=== PATIENT | female | born 1955 | race Caucasian/White ===

== ENCOUNTER 2020-01-08 12:28 | Inpatient (IN) | payer BC, MEDICARE ==
[~2020-01-08] VITALS: Ht 165.1 cm; Wt 51.9 kg
--- NOTE | 2020-01-08 13:51 | NUR ---
DR QUIGLEY BS FOR EXAM. PT'S SPOUSE PROVIDING INFORMATION. RECENTLY RETURNED FROM 5 MONTH HOSPITAL STAY IN [place]. COUPLE WAS VACATIONING IN [place] WHEN DX'D W/ LARGE BRAIN TUMOR. RT SIDED DEFECIT - NO MOVEMENT RT ARM, LIMITED MOVEMENT IN LEG - CAN STAND BUT NOT WALK. MENTAL STATUS - AWARE BUT DIFFICULTY IN SPEAKING, CAN'T FINISH SENTENCES. LT TEMPORAL SURGICAL SITE W/ CADAVER SKIN - SOME SUTURES RELEASED PRIOR TO FLIGHT HOME. APPT PENDING W/ PCP THIS COMING FRIDAY. TODAY: SEVERE NULL. NO PAIN MEDS TAKEN TODAY. PT SLEEPY; ANSWERS QUESTIONS APPROPRIATELY. DENIES PAIN CURRENTLY.
--- NOTE | 2020-01-08 14:09 | NUR ---
PT RETURNED HOME FRIDAY; CHOSE TO STOP MEDS ON FRIDAY EXCEPT FOR TOPICAL OINTMENT (FROM [facility]) FOR SURGICAL SITE
[2020-01-08] MEDS ORDERED: [UNRECOGNIZED DRUG - OTHER] TP (14:13)
[2020-01-08 14:32] LABS: BASOPHILS # (AUTO) 0.04 x10^3/uL (0-0.1); BASOPHILS % (AUTO) 0 % (0-1); EOSINOPHILS # (AUTO) 0.04 x10^3/uL (0-0.4); EOSINOPHILS % (AUTO) 0 % (1-7); LYMPHOCYTES # (AUTO) 0.51 x10^3/uL (1-3.4); LYMPHOCYTES % (AUTO) 4 % (22-44); MD NO; MEAN CORPUSCULAR HEMOGLOBIN 30.5 pg (27.0-34.8); MEAN CORPUSCULAR HGB CONC 33.6 g/dL (32.4-35.8); MEAN CORPUSCULAR VOLUME 90.8 fL (80-100); MEAN PLATELET VOLUME 7.2 fL (7.4-10.4); MONOCYTES # (AUTO) 0.63 x10^3/uL (0.2-0.8); MONOCYTES % (AUTO) 5 % (2-9); NEUTROPHILS # (AUTO) 11.76 x10^3/uL (1.8-6.8); NEUTROPHILS % (AUTO) 91 % (42-75); PLATELET COUNT 275 x10^3/uL (130-400); RED BLOOD COUNT 4.81 x10^6/uL (3.82-5.3); RED CELL DISTRIBUTION WIDTH 17.6 % (9.6-15.2)
[2020-01-08 14:43] LABS: ALBUMIN 3.4 g/dL (3.4-5.0); ANION GAP 8 mmol/L (5-15); CHLORIDE 101 mmol/L (98-107); CREATININE 0.64 mg/dL (0.55-1.02)
--- NOTE | 2020-01-08 14:50 | NUR ---
TO MRI PER LELA
[2020-01-08 14:57] LABS: INTERNATIONAL NORMALIZED RATIO 1.02 (0.93-1.1); PROTHROMBIN TIME 10.8 Seconds (9.6-11.5)
[2020-01-08] MEDS ORDERED: GADOTERATE 7.5 MMOL/15 ML SYR ONE (15:35)
--- NOTE | 2020-01-08 16:11 | NUR ---
LATE ENTRY: PER PERSONNEL WORKER NOTE, EMS GAVE PT FENTANYL 100 MCG AND ZOFRAN 4 MG.
--- NOTE | 2020-01-08 17:00 | NUR ---
PT ENDORSED TO BREAK RN.
--- NOTE | 2020-01-08 17:15 | NUR ---
TASK RN: PT RESTING ON GURNEY. ERP DR. QUIGLEY AT BEDSIDE FOR RE-EVAL AND SPEAKING W/ FAMILY AT THIS TIME.
--- NOTE | 2020-01-08 17:20 | NUR ---
TASK RN: SPOKE W/ ERP DR. QUIGLEY WHO STATES TO NOT TURN HER ON HER LEFT SIDE AT THIS TIME.
--- NOTE | 2020-01-08 17:25 | NUR ---
TASK RN: HR NOTED TO INCREASE FROM 70-[address] QUIGLEY NOTIFIED.
--- NOTE | 2020-01-08 17:32 | NUR ---
TASK RN: REPORT GIVEN TO RECEIVING RN ON ONC. PT RESTING ON GURNEY. NADN. [place].
--- NOTE | 2020-01-08 17:41 | NUR ---
PT REPORT FROM DAVID QUESADA RN. AWAITING TRANSFER TO ROOM.
--- NOTE | 2020-01-08 17:50 | NUR ---
DR QUIGLEY AT BS.
--- NOTE | 2020-01-08 17:59 | NUR ---
AYLIN 1 GRAM ORDER CONFIRMED W/ DR QUIGLEY; TO BE GIVEN. LAB CURRENTLY BS FOR BLD CX DRAW.
[2020-01-08] MEDS ORDERED: ONDANSETRON 2MG/ML, 2ML IVPush ONE (18:00)
[2020-01-08] MEDS ORDERED: PHARMACOKINETIC CONSULTATION MC ONE ×2 (18:00→19:30)
[2020-01-08] MEDS ORDERED: VANCOMYCIN PER PHARMACY MC ONE (18:00)
[2020-01-08] MEDS ORDERED: VANCOMYCIN 1,800 MG in SODIUM CHLORIDE 0.9% 250 ML IV ONE ×2 (18:00→19:30)
[2020-01-08] MEDS ORDERED: CEFTRIAXONE PMX 1GM/50ML 50 ML IVPB ONE (18:00)
[2020-01-08] MEDS ORDERED: VANCOMYCIN 2,000 MG in SODIUM CHLORIDE 0.9% 500 ML IV ONE (18:00)
[2020-01-08 18:12] LABS: HCT (SEDRATE) 43.4 % (34.6-47.8)
[2020-01-08] MEDS: SODIUM CHLORIDE 0.9% 1,000 ML IV ONE ×2 (18:20→19:44)
[2020-01-08] MEDS ORDERED: CEFTRIAXONE PMX 1GM/50ML 50 ML ONE (18:27)
[2020-01-08] MEDS ORDERED: ONDANSETRON 2MG/ML, 2ML ONE (18:27)
[2020-01-08] MEDS ORDERED: MORPHINE SULFATE 4 MG/ML, 1ML ONE (18:28)
[2020-01-08] MEDS ORDERED: SODIUM CHLORIDE FLUSH 10ML SYR IVF PRN (18:30)
[2020-01-08] MEDS ORDERED: SODIUM CHLORIDE 0.9% 1,000 ML IV SCH (18:37)
[2020-01-08] MEDS: MORPHINE SULFATE 4 MG/ML, 1ML IVPush PRN ×2 (18:40→19:11)
--- NOTE | 2020-01-08 18:45 | NUR ---
AYLIN MILLIGAN PER VO DR QUIGLEY. VANCO WILL BE SENT TO FLOOR W/ PT. PT WAS MEDICATED W/ ZOFRAN AND MORPHINE PER EMAR.
[2020-01-08] MEDS ORDERED: VANCOMYCIN PER PHARMACY MC PRN (19:00)
[2020-01-08] MEDS ORDERED: BISACODYL 10 MG SUPP PR PRN (19:00)
[2020-01-08] MEDS ORDERED: POLYETHYLENE GLYCOL 17 GM PACKET PO PRN (19:00)
[2020-01-08] MEDS ORDERED: morphine SULFATE 10 MG/ML, 1ML IVPush PRN (19:00)
[2020-01-08] MEDS ORDERED: LORazepam 2 MG/ML, 1ML IVPush PRN (19:00)
[2020-01-08] MEDS ORDERED: ONDANSETRON 2MG/ML, 2ML IVPush PRN (19:00)
[2020-01-08 19:08] VITALS: BP 101/71
[2020-01-08] MEDS ORDERED: PHARMACOKINETIC MONITORING MC PRN (19:30)
[2020-01-08] MEDS: CEFTRIAXONE PMX 1GM/50ML 50 ML IV SCH (23:55)
[2020-01-09 00:06] VITALS: BP 92/62
[2020-01-09 07:24] LABS: ALANINE AMINOTRANSFERASE 41 U/L (12-78); ALBUMIN 2.9 g/dL (3.4-5.0); ANION GAP 6 mmol/L (5-15); CALCIUM 8.9 mg/dL (8.5-10.1); CHLORIDE 104 mmol/L (98-107); CREATININE 0.59 mg/dL (0.55-1.02)
[2020-01-09 07:25] LABS: BASOPHILS # (AUTO) 0.08 x10^3/uL (0-0.1); BASOPHILS % (AUTO) 1 % (0-1); EOSINOPHILS # (AUTO) 0.05 x10^3/uL (0-0.4); EOSINOPHILS % (AUTO) 1 % (1-7); LYMPHOCYTES # (AUTO) 0.87 x10^3/uL (1-3.4); LYMPHOCYTES % (AUTO) 10 % (22-44); MD NO; MEAN CORPUSCULAR HEMOGLOBIN 30.7 pg (27.0-34.8); MEAN CORPUSCULAR HGB CONC 34.1 g/dL (32.4-35.8); MEAN CORPUSCULAR VOLUME 90.1 fL (80-100); MEAN PLATELET VOLUME 7.6 fL (7.4-10.4); MONOCYTES # (AUTO) 0.62 x10^3/uL (0.2-0.8); MONOCYTES % (AUTO) 7 % (2-9); NEUTROPHILS # (AUTO) 6.97 x10^3/uL (1.8-6.8); NEUTROPHILS % (AUTO) 81 % (42-75); PLATELET COUNT 253 x10^3/uL (130-400); RED BLOOD COUNT 4.42 x10^6/uL (3.82-5.3); RED CELL DISTRIBUTION WIDTH 17.9 % (9.6-15.2)
[2020-01-09 07:26] LABS: ALKALINE PHOSPHATASE 68 U/L (45-117); BILIRUBIN,TOTAL 0.6 mg/dL (0.2-1.0); TOTAL PROTEIN 6.8 g/dL (6.4-8.2)
[2020-01-09 07:40] VITALS: BP 92/59
[2020-01-09] MEDS ORDERED: SENNA/DOCUSATE TABLET PO SCH (09:00)
[2020-01-09] MEDS ORDERED: ATROPINE OPHTH SOLN 1%, 5ML PO PRN (11:00)
[2020-01-09] MEDS ORDERED: MORPHINE SULFATE 4 MG/ML, 1ML IVPush PRN (11:00)
[2020-01-09] MEDS: SODIUM CHLORIDE FLUSH 10ML SYR IVF SCH ×2 (11:00→21:00)
[2020-01-09] MEDS ORDERED: SCOPOLAMINE 1MG PATCH TD PRN (11:00)
[2020-01-09] MEDS ORDERED: ONDANSETRON 2MG/ML, 2ML IVPush PRN (11:00)
[2020-01-09] MEDS ORDERED: LORazepam 2 MG/ML, 1ML IVPush PRN (11:00)
[2020-01-09 14:30] VITALS: BP 93/58
[2020-01-09 18:50] LABS: MICROSCOPIC NOT IND
[2020-01-09] MEDS: SENNOSIDES 8.6 MG TABLET PO SCH (21:00)
[2020-01-09] MEDS: CEFTRIAXONE PMX 1GM/50ML 50 ML IV SCH (23:35)
[2020-01-10] MEDS ORDERED: VANCOMYCIN 1,800 MG in SODIUM CHLORIDE 0.9% 250 ML IV SCH (07:00)
[2020-01-10] MEDS: SENNOSIDES 8.6 MG TABLET PO SCH (08:52)
[2020-01-10] MEDS: SODIUM CHLORIDE FLUSH 10ML SYR IVF SCH (09:08)
[2020-01-10] MEDS ORDERED: AMOX1TAB64 PO (12:03)
[2020-01-10 12:38] VITALS: BP 100/56
== END 2020-01-10 13:38 | disposition hospice, home (50) | DRG 94 ==
LOC: ED 16:05 → EDIP 18:20 → 3WST 18:56 → 4NW 23:41
PROVIDERS: ADMIT Family Medicine; ATTEND Internal Medicine
DX: G06.0 Intracranial abscess and granuloma (principal); G93.6 Cerebral edema; C71.9 Malignant neoplasm of brain, unspecified; E87.1 Hypo-osmolality and hyponatremia; Z51.5 Encounter for palliative care; G83.9 Paralytic syndrome, unspecified; R62.7 Adult failure to thrive; R73.9 Hyperglycemia, unspecified; E86.0 Dehydration; Z66 Do not resuscitate; Z85.841 Personal history of malignant neoplasm of brain
CPT/HCPCS: 36415; 70553; 71045; 80048; 80053; 81003; 82040; 83605; 85025; 85610; 85651; 85730; 86140; 87040; 99285; G0378; J0696; J2405; J3370; A9575; J2270; J7030; J7050; U0001-CS